=== PATIENT | female | born 1995 ===

== ENCOUNTER 2019-09-21 12:29 | Inpatient (IN) | payer OTHER ==
[2019-09-21] MEDS ORDERED: Oxytocin 10 UNITS/ML VIAL ONE (12:35)
[2019-09-21] MEDS ORDERED: Misoprostol 200 MCG TAB ONE (13:01)
[2019-09-21] MEDS ORDERED: Ondansetron PF 4 MG/2 ML Vial IVP PRN ×2 (13:19→15:13)
[2019-09-21] MEDS ORDERED: Butorphanol Tartrate 1 MG/ML VIAL SLOW IVP PRN (13:19)
[2019-09-21] MEDS ORDERED: Milk Of Magnesia 30 ML UDCUP PO PRN ×2 (13:19→15:13)
[2019-09-21] MEDS ORDERED: Promethazine HCl 25 MG/ML VIAL IM PRN (13:19)
[2019-09-21] MEDS ORDERED: hydrALAZINE 20 MG/ML VIAL SLOW IVP PRN ×3 (13:19→15:13)
[2019-09-21] MEDS ORDERED: Bisacodyl 10 MG SUPP PR PRN ×2 (13:19→15:13)
--- NOTE | 2019-09-21 13:21 | PDOC.EVN ---
Event Note - Event Note Event Note: courtesy orders placed by me as requested by RN
--- NOTE | 2019-09-21 13:28 | PDOC.LDHP ---
Labor and Delivery H&P Chief complaint: contractions HPI: Patient called office today to discuss her contraction pattern. they had been all night long, irregular, and would space out then get as close as eight minutes. We disscussed doing the [place] circuit and then letting me know when she was on her way to the hospital. There was a dramatic change in contractions after the phone call so they decided to head to the hospital. Upon arrival, the patient felt like she needed to push. Denies LOF, VB. +FM. Current gestational age (weeks): 40 Dating criteria: last menstrual period Grav: 4 Para: 3 OB History Details: x 3 Allergies/Adverse Reactions: Allergies Allergy/AdvReac Type Severity Reaction Status Date / Time No Known Allergies Allergy Unverified 09/21/19 13:22 Social history: none - Physical Exam Vital signs reviewed and normal: yes General: breathing through contractions Abdomen: gravid FHT: category 1 - Vaginal Exam cm dilated: 10 Effacement: 100% Station: 2+ - Assessment L&D Assessment: term patient in labor - Plan Plan: admit to L&D -: IM pitocin to bedside as there was no IV at the time of delivery. . Uncomplicated.
[2019-09-21] MEDS ORDERED: Lactated Ringer's 1,000 ML IV SCH (13:30)
[2019-09-21] MEDS ORDERED: NS / Oxytocin 40 units/1000ml 1,000 ML IV SCH ×2 (13:30→15:13)
--- NOTE | 2019-09-21 13:31 | PDOC.OPDEL ---
OB Operative/Delivery Note Delivery Dr/Surgeon: Lauri Maldonado Pre-Delivery Diagnosis: active labor Procedure/Post Delivery Dx: spontaneous vaginal delivery Weeks gestation: 40 Anesthesia: none - Findings A Sex: male Weight: 7 lb 13 oz - 1 min: 8 - 5 min: 9 - Additional Findings/Plan Placenta delivered: spontaneous Repaired Obstetrical Laceration: none Estimated blood loss: 400mL Post delivery plan: routine recovery
[2019-09-21 13:32] VITALS: BMI 24.5
[2019-09-21] MEDS ORDERED: Ibuprofen 800 MG TAB PO SCH (14:00)
[2019-09-21] MEDS ORDERED: Oxytocin 10 UNITS/ML VIAL IM SCH (14:15)
[2019-09-21] MEDS ORDERED: Erythromycin Base 0.5% Oint 1 GM TUBE ONE (14:17)
[2019-09-21] MEDS ORDERED: Phytonadione Neonatal 1 MG/0.5 ML AMP ONE (14:17)
[2019-09-21] MEDS ORDERED: HYDROcodone/Acetaminophen 5/325 mg Tablet PO PRN (15:13)
[2019-09-21] MEDS ORDERED: Methylergonovine 0.2 MG/ML VIAL IM PRN (15:13)
[2019-09-21] MEDS ORDERED: Misoprostol 200 MCG TAB VAG PRN (15:13)
[2019-09-21] MEDS ORDERED: Benzocaine-Menthol 82.5 ML CAN TOP PRN (15:13)
[2019-09-21] MEDS: HYDROcodone/Acetaminophen 5/325 mg Tablet PO PRN ×2 (16:26→20:40)
[2019-09-21] MEDS ORDERED: Ferrous Sulfate 325 MG TAB PO SCH (17:00)
[2019-09-21] MEDS: Ferrous Sulfate 325 MG TAB PO SCH (17:29)
[2019-09-21] MEDS: Docusate Calcium (SURFAK) 240 MG CAP PO SCH (20:40)
[2019-09-21] MEDS ORDERED: Docusate Calcium (SURFAK) 240 MG CAP PO SCH (21:00)
[2019-09-21] MEDS: Ibuprofen 800 MG TAB PO SCH (21:47)
[2019-09-22] MEDS: HYDROcodone/Acetaminophen 5/325 mg Tablet PO PRN ×3 (00:34→13:18)
[2019-09-22] MEDS: Ibuprofen 800 MG TAB PO SCH ×2 (05:24→12:49)
--- NOTE | 2019-09-22 07:38 | PDOC.PP ---
Post Progress Note Post Day #: 1 Subjective: Patient is doing well. PO intake tolerated: yes Flatus: yes Ambulation: yes Vital Signs (12 hours) Temp Pulse Resp BP Pulse Ox 09/22/19 05:24 98.0 F 92 16 114/62 98 09/22/19 00:34 98.4 F 97 18 134/67 99 09/21/19 20:10 98.7 F 98 16 126/62 99 Weight Weight 143 lb - Physical Examination General: NAD Respiratory: non-labored breathing Abdominal: lochia Extremities: negative homans (B) Skin: no rash Neurological: no gross focal deficits Psychiatric: A&Ox3, normal affect Additional Labs: Post Labs Blood Type A POSITIVE 09/21/19 17:16 (1) (spontaneous vaginal delivery) Code(s): O80 - ENCOUNTER FOR FULL-TERM UNCOMPLICATED DELIVERY Status: Acute - Assessment/Plan A:G4 Now P4 s/p . no lacerations P: Discharge home today if today if infant is discharged
[2019-09-22] MEDS: Ferrous Sulfate 325 MG TAB PO SCH ×2 (07:43→13:29)
[2019-09-22] MEDS: Docusate Calcium (SURFAK) 240 MG CAP PO SCH (08:09)
[2019-09-22] MEDS ORDERED: Prenatal Vitamin 1 TAB PO SCH (09:00)
[2019-09-22 12:13] VITALS: BP 127/58; TEMP 98.3
[2019-09-22] MEDS ORDERED: Adacel (T-DAP) 0.5 ML SYRINGE IM ONE ×2 (13:19→15:13)
[2019-09-22 16:28] LABS: HBSAg Index 0.22 S/CO (0-0.99); Hep B Surf Ag Non-Reactive S/CO (NonReactive)
[2019-09-22 16:34] LABS: Syphilis Antibody Nonreactive (Nonreactive); Syphilis Antibody Index 0.02 S/CO (<1.00 Non-Reactive)
== END 2019-09-22 18:10 | disposition home or self-care (01) | DRG 807 ==
LOC: L&D 12:29 → 3SW 15:48
PROVIDERS: ADMIT Obstetrics & Gynecology; ATTEND Obstetrics & Gynecology
PROC: 10E0XZZ Delivery of Products of Conception, External Approach (ICD-10-PCS; principal; 2019-09-21)
DX: O80 Encounter for full-term uncomplicated delivery (principal); Z37.0 Single live birth; Z3A.40 40 weeks gestation of pregnancy
CPT/HCPCS: 36415; 86780; 87340; J2590; J3430